=== PATIENT | female | born 1990 | race African-American/Black ===

== ENCOUNTER 2020-04-14 16:45 | Observation (INO) ==
[2020-04-14] MEDS ORDERED: diphenhydrAMINE CAP 25 MG CAPSULE PO PRN (20:48)
[2020-04-14] MEDS ORDERED: DEXTROSE 50% 25 GM/50 ML VIAL IV PRN (20:48)
[2020-04-14] MEDS ORDERED: ONDANSETRON 4 MG/2 ML VIAL IV PRN (20:48)
[2020-04-14] MEDS ORDERED: DOCUSATE SODIUM 100 MG CAPSULE PO PRN (20:48)
[2020-04-14] MEDS ORDERED: ZALEPLON 5 MG CAPSULE PO PRN (20:48)
[2020-04-14] MEDS ORDERED: NICOTINE 21 MG/24 HR PATCH TRANSDERM PRN (20:48)
[2020-04-14] MEDS ORDERED: ALUMINUM/MAGNES/SIMETH MAX STR 30 ML UDCUP PO PRN (20:48)
[2020-04-14] MEDS ORDERED: ACETAMINOPHEN 325 MG TABLET PO PRN (20:48)
[2020-04-14] MEDS ORDERED: guaiFENesin/DM ER 600-30 MG TABLET PO PRN (20:48)
[2020-04-14] MEDS ORDERED: SIMETHICONE CHEW 125 MG TABLET PO PRN (20:48)
[2020-04-14] MEDS ORDERED: CALCIUM CARBONATE CHEW 500 MG TABLET PO PRN (20:48)
[2020-04-14] MEDS ORDERED: GLUCAGON 1 MG VIAL IM PRN (20:48)
[2020-04-14] MEDS ORDERED: ALBUTEROL 2.5 MG/3 ML NEB RESP TX PRN (20:48)
[2020-04-14] MEDS ORDERED: PROMETHAZINE 25 MG/1 ML VIAL IM PRN (20:48)
[2020-04-14 21:13] LABS: ABG Base Excess -1.7 MMOL/L (-2.5-2.5); ABG HCO3 21.7 MMOL/L (20-26); ABG Oxygen Saturation 92.7 % (95-100); ABG PCO2 32.2 MM HG (35-48); ABG PH 7.447 (7.35-7.45); ABG PO2 66.6 MM HG (80-95); ABG TCO2 22.7 MMOL/L (23-27); Allen Test Positive; Pt O2 Delivery Device Room Air
[2020-04-14 21:43] LABS: Basophils % 0.4 % (0.0-0.8); Eosinophils % 0.2 % (0.00-10.9); Hematocrit 30.6 VOL% (35.7-47.0); Hemoglobin 9.8 GM/DL (12.0-16.0); Immature Granulocytes % 0.6 %; Immature Granulocytes Absolute 0.03 #; Lymphocytes # 0.8 10*3/uL (1.4-4.0); Lymphocytes % 15.9 % (21.3-54.2); Monocytes % 6.8 % (1.7-12.7); Neutrophils % 76.1 % (38.7-73.9); Platelet Count 165 T/CUMM (130-400); Red Blood Count 2.97 MC/CUMM (3.8-5.5); Red Cell Distribution Width 17.2 % (9.3-17.3)
[2020-04-14 21:57] LABS: Albumin 2.3 G/DL (3.4-5.0); Bilirubin,Direct 0.13 MG/DL (0.0-0.20); Bilirubin,Indirect 0.3 MG/DL (0.0-1.0); Bilirubin,Total 0.4 MG/DL (0.2-1.0); Calcium 7.9 MG/DL (8.5-10.1); Osmolality,Calculated 286.8 MOS/KG (273-304); Total Protein 5.8 G/DL (6.4-8.3)
[2020-04-14] MEDS ORDERED: MEROPENEM 500 MG in SODIUM CHLORIDE 0.9% 100 ML IV SCH (22:00)
[2020-04-14] MEDS: SODIUM CHLORIDE 0.9% 1,000 ML IV SCH (22:14)
[2020-04-14] MEDS: hydrALAZINE 20 MG/1 ML VIAL IV PRN (23:55)
[2020-04-15] MEDS ORDERED: INSULIN REGULAR 100 UNIT/ML SUBCUT ONE (01:00)
[2020-04-15] MEDS: SODIUM CHLORIDE 0.9% 1,000 ML IV SCH ×2 (01:39→17:43)
[2020-04-15 02:16] LABS: Basophils % 0.4 % (0.0-0.8); Eosinophils % 0.2 % (0.00-10.9); Hematocrit 29.8 VOL% (35.7-47.0); Hemoglobin 9.1 GM/DL (12.0-16.0); Immature Granulocytes % 0.4 %; Immature Granulocytes Absolute 0.02 #; Lymphocytes # 0.8 10*3/uL (1.4-4.0); Lymphocytes % 16.5 % (21.3-54.2); Mean Corpuscular HGB Conc 30.5 GM/DL (32-36); Mean Platelet Volume 11.6 FL (9.6-12.0); Monocytes % 6.3 % (1.7-12.7); Neutrophils % 76.2 % (38.7-73.9); Platelet Count 144 T/CUMM (130-400); Red Blood Count 2.81 MC/CUMM (3.8-5.5); Red Cell Distribution Width 17.2 % (9.3-17.3); White Blood Count 4.9 T/CUMM (4-12)
[2020-04-15] MEDS ORDERED: VANCOMYCIN INJ 1,000 MG in SODIUM CHLORIDE 0.9% 250 ML IV PRN (02:17)
[2020-04-15] MEDS: amLODIPine 10 MG TABLET PO SCH ×2 (02:26→09:14)
[2020-04-15] MEDS ORDERED: VANCOMYCIN INJ 1,250 MG in SODIUM CHLORIDE 0.9% 250 ML IV ONE (02:30)
[2020-04-15 02:35] LABS: Calcium 7.3 MG/DL (8.5-10.1); Osmolality,Calculated 301.2 MOS/KG (273-304)
[2020-04-15] MEDS ORDERED: INSULIN REGULAR 100 UNIT/ML IV ONE (02:49)
[2020-04-15 08:38] LABS: Apearance,Urine Slightly Hazy (Clear); Bacteria,Urine Occasional /HPF (Few); Bilirubin,Urine Negative (Negative); Blood, Urine Negative (Negative); Glucose,Urine (UA) >=500 mg/dL (Negative); Hyaline Casts,Urine 3 /LPF (0-3); Ketones,Urine 5 mg/dL (Negative); Mucus,Urine Occasional /LPF (Occasional); Nitrite,Urine Negative (Negative); Protein,Urine >=500 MG/DL; RBC,Urine 4 /HPF (0-4); Squamous Epithelial Cell,Urine Occasional /HPF (0-10); Urine Color Yellow (Yellow); Urine Urobilinogen < 2.0 EU/DL (0.2-1.0); WBC,Urine 3 /HPF (0-6)
[2020-04-15] MEDS: PANTOPRAZOLE 40 MG TABLET PO SCH (09:14)
[2020-04-15] MEDS ORDERED: GLUCAGON 1 MG VIAL IM PRN ×2 (10:04)
[2020-04-15] MEDS ORDERED: DEXTROSE 50% 25 GM/50 ML VIAL IV PRN ×2 (10:04)
[2020-04-15] MEDS ORDERED: FUROSEMIDE 20 MG/2 ML VIAL IV ONE (10:18)
[2020-04-15] MEDS: lisinopriL 20 MG TABLET PO SCH (12:05)
[2020-04-15] MEDS: INSULIN REGULAR 100 UNIT/ML SUBCUT SCH ×2 (12:55→17:04)
[2020-04-15] MEDS: INSULIN LISPRO 100 UNIT/ML SUBCUT SCH ×2 (17:06→18:02)
[2020-04-16] MEDS: INSULIN LISPRO 100 UNIT/ML SUBCUT SCH ×5 (00:37→14:19)
[2020-04-16 06:20] LABS: Eosinophils # 0.2 10*3/uL (0.0-0.87); Eosinophils % 5.9 % (0.00-10.9); Hematocrit 32.5 VOL% (35.7-47.0); Hemoglobin 10.2 GM/DL (12.0-16.0); Lymphocytes # 1.3 10*3/uL (1.4-4.0); Lymphocytes % 31.5 % (21.3-54.2); Mean Corpuscular HGB Conc 31.4 GM/DL (32-36); Mean Corpuscular Volume 102.8 FL (87-102); Mean Platelet Volume 11.4 FL (9.6-12.0); Monocytes % 7.1 % (1.7-12.7); Neutrophils % 54.5 % (38.7-73.9); Platelet Count 143 T/CUMM (130-400); Red Blood Count 3.16 MC/CUMM (3.8-5.5); White Blood Count 4.1 T/CUMM (4-12)
[2020-04-16 06:38] LABS: Calcium 7.9 MG/DL (8.5-10.1); Osmolality,Calculated 287.4 MOS/KG (273-304)
[2020-04-16] MEDS: lisinopriL 20 MG TABLET PO SCH (09:11)
[2020-04-16] MEDS: amLODIPine 10 MG TABLET PO SCH (09:16)
[2020-04-16] MEDS: PANTOPRAZOLE 40 MG TABLET PO SCH (09:16)
[2020-04-16 11:22] LABS: Hepatitis B Surface Ag Quant < 0.10 Index; Hepatitis B Surface Ag Result Negative (Negative)
[2020-04-16] MEDS: hydrALAZINE 20 MG/1 ML VIAL IV PRN (14:24)
[2020-04-16 15:08] VITALS: BP 178/96
== END 2020-04-16 16:00 | disposition home or self-care (01) ==
LOC: N.3E
PROVIDERS: ADMIT Internal Medicine; ATTEND Internal Medicine

== ENCOUNTER 2020-07-04 10:55 | Inpatient (IN) ==
[2020-07-04] MEDS ORDERED: ACETAMINOPHEN 325 MG TABLET PO PRN (12:51)
[2020-07-04] MEDS ORDERED: ONDANSETRON 4 MG/2 ML VIAL IV PRN (12:51)
[2020-07-04] MEDS ORDERED: ALBUTEROL 2.5 MG/3 ML NEB RESP TX PRN (12:51)
[2020-07-04] MEDS ORDERED: DEXTROSE 50% 25 GM/50 ML VIAL IV PRN (12:59)
[2020-07-04] MEDS ORDERED: GLUCAGON 1 MG VIAL IM PRN (12:59)
[2020-07-04] MEDS: ENOXAPARIN 30 MG/0.3 ML SYRINGE SUBCUT SCH (13:33)
[2020-07-04] MEDS: FAMOTIDINE 20 MG TABLET PO SCH ×2 (13:33→20:17)
[2020-07-04] MEDS: lisinopriL 20 MG TABLET PO SCH (13:33)
[2020-07-04 13:56] LABS: Calcium 7.6 MG/DL (8.5-10.1); Osmolality,Calculated 312.9 MOS/KG (273-304)
[2020-07-04] MEDS: NIFEdipine 10 MG CAPSULE PO PRN ×2 (14:33→18:20)
[2020-07-04 15:57] LABS: Hepatitis B Core IgM Quant 0.12 Index; Hepatitis B Surface Ag Quant < 0.10 Index; Hepatitis B Surface Ag Result Negative (Negative); Hepatitis C Virus Ab Quant 0.02 Index; Hepatitis C Virus Ab Result Negative (Negative)
[2020-07-04] MEDS: GABAPENTIN 100 MG CAPSULE PO SCH ×2 (16:45→20:17)
[2020-07-04] MEDS: INSULIN LISPRO 100 UNIT/ML SUBCUT SCH ×4 (16:45→23:59)
[2020-07-04 18:36] LABS: Calcium 7.8 MG/DL (8.5-10.1); Osmolality,Calculated 295.5 MOS/KG (273-304)
[2020-07-05] MEDS: NIFEdipine 10 MG CAPSULE PO PRN ×2 (00:08→09:31)
[2020-07-05 03:08] LABS: Osmolality,Calculated 284.8 MOS/KG (273-304)
[2020-07-05 03:13] LABS: Calcium 5.1 MG/DL (8.5-10.1)
[2020-07-05] MEDS ORDERED: MAGNESIUM SULF RIDER 4 GM in PREMIX 1 EACH IV PRN ×2 (03:47→03:51)
[2020-07-05] MEDS ORDERED: MAGNESIUM SULF RIDER 2 GM in PREMIX 1 EACH IV PRN (03:47)
[2020-07-05] MEDS: INSULIN LISPRO 100 UNIT/ML SUBCUT SCH ×7 (03:53→20:42)
[2020-07-05] MEDS ORDERED: CALCIUM GLUCONATE 1,000 MG in SODIUM CHLORIDE 0.9% 100 ML IV ONE (04:00)
[2020-07-05] MEDS ORDERED: POTASSIUM CHLORIDE 20 MEQ TABLET PO ONE (04:00)
[2020-07-05] MEDS: POTASSIUM CHLORIDE RIDER 10 MEQ in PREMIX 1 EACH IV SCH ×4 (04:28→07:27)
[2020-07-05] MEDS: MAGNESIUM SULF RIDER 2 GM in PREMIX 1 EACH IV PRN ×2 (04:29→06:31)
[2020-07-05 06:01] LABS: Calcium 8.3 MG/DL (8.5-10.1); Osmolality,Calculated 272.2 MOS/KG (273-304)
[2020-07-05] MEDS ORDERED: POTASSIUM CHLORIDE RIDER 10 MEQ in PREMIX 1 EACH IV PRN (06:42)
[2020-07-05] MEDS: lisinopriL 20 MG TABLET PO SCH (08:00)
[2020-07-05] MEDS: FAMOTIDINE 20 MG TABLET PO SCH (08:02)
[2020-07-05] MEDS: GABAPENTIN 100 MG CAPSULE PO SCH ×3 (08:03→20:42)
[2020-07-05] MEDS: ENOXAPARIN 30 MG/0.3 ML SYRINGE SUBCUT SCH (14:06)
[2020-07-06] MEDS: NIFEdipine 10 MG CAPSULE PO PRN ×3 (01:35→17:00)
[2020-07-06 06:50] LABS: Osmolality,Calculated 281.1 MOS/KG (273-304)
[2020-07-06] MEDS: GABAPENTIN 100 MG CAPSULE PO SCH ×2 (08:41→16:59)
[2020-07-06] MEDS: lisinopriL 20 MG TABLET PO SCH (08:42)
[2020-07-06] MEDS: FAMOTIDINE 20 MG TABLET PO SCH (08:42)
[2020-07-06] MEDS: INSULIN LISPRO 100 UNIT/ML SUBCUT SCH ×5 (08:44→17:00)
[2020-07-06] MEDS ORDERED: HEPARIN 5,000 UNIT/1 ML VIAL SUBCUT SCH (17:00)
[2020-07-06 17:03] VITALS: BP 153/116
== END 2020-07-06 17:45 | disposition home or self-care (01) | DRG 420 ==
LOC: N.ICU 12:17 → SUATTDRO 12:17 → N.5E 07-05 16:14
PROVIDERS: ADMIT Internal Medicine; ATTEND Internal Medicine Geriatric Medicine